=== PATIENT | male | born 2000 | race Two or more races ===

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

== ENCOUNTER 2020-08-24 08:53 | Outpatient (CLI) | payer BC | END 2020-08-24 08:54 | disposition home or self-care (01) | LOC: LAB 08:53 | PROVIDERS: ATTEND Pediatrics | DX: Z20.822 Contact with and (suspected) exposure to COVID-19 (principal) ==

== ENCOUNTER 2023-11-20 10:45 | Outpatient (CLI) | payer BC, OTHER | END 2023-11-20 11:00 | disposition home or self-care (01) | LOC: LAB.N 10:45 | PROVIDERS: ATTEND Physician Assistant Medical | DX: Z02.1 Encounter for pre-employment examination (principal) | CPT/HCPCS: 36415; 81599; 86317 ==